=== PATIENT | female | born 1945 | race Caucasian/White ===

== ENCOUNTER 2017-10-02 11:17 | Inpatient (IN) | payer MEDICARE ==
[~2017-10-02] VITALS: Ht 162.6 cm; Wt 67.9 kg
[~2017-10-02 11:17] MED LIST: ESTR0.5T PO; INSU100V5 SQ-INSULIN; INSU100V8 SQ; LEVO112T4 PO; OMEG300C PO; UBID100C41 PO; VALS80TA3 PO; VIT1CAPS10 PO
[2017-10-02] MEDS ORDERED: SODIUM CHLORIDE 0.9% 1,000 ML IV ONE (11:38)
[2017-10-02] MEDS ORDERED: SODIUM CHLORIDE 0.9% 1,000ML IVBOLUS ONE (12:00)
[2017-10-02] MEDS ORDERED: HYDROmorphone 1 MG/ML, 1ML IVPush PRN (12:00)
[2017-10-02] MEDS ORDERED: ONDANSETRON 2MG/ML, 2ML IVPush ONE (12:00)
[2017-10-02] MEDS ORDERED: SODIUM CHLORIDE FLUSH 10ML SYR IVF ONE (12:00)
[2017-10-02] MEDS ORDERED: ONDANSETRON 2MG/ML, 2ML ONE (12:06)
[2017-10-02] MEDS ORDERED: HYDROmorphone 2 MG/ML, 1ML ONE ×3 (12:06→18:15)
[2017-10-02 12:26] LABS: BASOPHILS % (AUTO) 0 % (0-1); EOSINOPHILS # (AUTO) 0.01 x10^3/uL (0-0.4); EOSINOPHILS % (AUTO) 0 % (1-7); LYMPHOCYTES # (AUTO) 0.27 x10^3/uL (1-3.4); LYMPHOCYTES % (AUTO) 3 % (22-44); MD NO; MEAN CORPUSCULAR HEMOGLOBIN 31.2 pg (27.0-34.8); MEAN CORPUSCULAR HGB CONC 34.4 g/dL (32.4-35.8); MEAN CORPUSCULAR VOLUME 90.7 fL (80-100); MEAN PLATELET VOLUME 6.8 fL (7.4-10.4); MONOCYTES # (AUTO) 0.24 x10^3/uL (0.2-0.8); MONOCYTES % (AUTO) 3 % (2-9); NEUTROPHILS # (AUTO) 8.27 x10^3/uL (1.8-6.8); NEUTROPHILS % (AUTO) 94 % (42-75); PLATELET COUNT 293 x10^3/uL (130-400); RED CELL DISTRIBUTION WIDTH 11.9 % (9.6-15.2)
[2017-10-02 12:36] LABS: ANION GAP 7 mmol/L (5-15); CALCIUM 9.2 mg/dL (8.5-10.1); CHLORIDE 95 mmol/L (98-107); CREATININE 0.73 mg/dL (0.55-1.02)
[2017-10-02 12:37] LABS: ALANINE AMINOTRANSFERASE 23 U/L (12-78)
[2017-10-02 12:39] LABS: ALKALINE PHOSPHATASE 130 U/L (45-117); BILIRUBIN,TOTAL 0.8 mg/dL (0.2-1.0); TOTAL PROTEIN 7.9 g/dL (6.4-8.2)
[2017-10-02 13:00] LABS: MICROSCOPIC INDICATED
[2017-10-02 13:01] LABS: CULTURE INDICATED? YES
[2017-10-02] MEDS ORDERED: PROMETHAZINE 25 MG/ML, 1ML ONE (14:43)
[2017-10-02] MEDS ORDERED: CEFTRIAXONE PMX 1GM/50ML 50 ML ONE (14:57)
[2017-10-02] MEDS ORDERED: PROMETHAZINE 25 MG/ML, 1ML IM ONE (15:00)
[2017-10-02] MEDS ORDERED: CEFTRIAXONE PMX 1GM/50ML 50 ML IVPB ONE (15:00)
[2017-10-02] MEDS ORDERED: POLYETHYLENE GLYCOL 17 GM PACKET PO PRN (17:30)
[2017-10-02] MEDS ORDERED: BISACODYL 10 MG SUPP PR PRN (17:30)
[2017-10-02] MEDS ORDERED: ENALAPRILAT 1.25 MG/ML, 2ML IVPush PRN (17:30)
[2017-10-02] MEDS: INSULIN ASPART 100 UNITS/ML, PEN SQ-INSULIN SCH ×2 (17:30→20:35)
[2017-10-02 17:44] LABS: FREE T4 (FREE THYROXINE) 1.72 ng/dL (0.76-1.46); THYROID STIMULATING HORMONE 0.643 mIU/L (0.358-3.740)
[2017-10-02 17:46] LABS: HEMOGLOBIN A1C 8.4 % (4.2-6.3)
[2017-10-02 20:00] VITALS: BP 159/67
[2017-10-02] MEDS: SODIUM CHLORIDE 0.9% 1,000 ML IV SCH (20:15)
[2017-10-02] MEDS: HEPARIN 5,000 UNITS/ML, 1ML SQ SCH (20:25)
[2017-10-02] MEDS: ONDANSETRON 2MG/ML, 2ML IVPush PRN (21:05)
[2017-10-03 02:49] VITALS: BP 143/58
[2017-10-03] MEDS: ACETAMINOPHEN 325 MG TABLET PO PRN ×2 (02:52→21:06)
[2017-10-03] MEDS: SODIUM CHLORIDE 0.9% 1,000 ML IV SCH (05:40)
[2017-10-03] MEDS: HEPARIN 5,000 UNITS/ML, 1ML SQ SCH ×3 (05:40→21:07)
[2017-10-03] MEDS: LEVOTHYROXINE 112 MCG TABLET PO SCH (05:41)
[2017-10-03 05:58] LABS: ALBUMIN 2.9 g/dL (3.4-5.0); ANION GAP 9 mmol/L (5-15); CALCIUM 7.6 mg/dL (8.5-10.1); CHLORIDE 102 mmol/L (98-107)
[2017-10-03 06:01] LABS: BASOPHILS # (AUTO) 0.03 x10^3/uL (0-0.1); BASOPHILS % (AUTO) 1 % (0-1); EOSINOPHILS % (AUTO) 0 % (1-7); LYMPHOCYTES # (AUTO) 0.32 x10^3/uL (1-3.4); LYMPHOCYTES % (AUTO) 8 % (22-44); MD NO; MEAN CORPUSCULAR HEMOGLOBIN 30.9 pg (27.0-34.8); MEAN CORPUSCULAR HGB CONC 33.7 g/dL (32.4-35.8); MEAN CORPUSCULAR VOLUME 91.7 fL (80-100); MEAN PLATELET VOLUME 7.1 fL (7.4-10.4); MONOCYTES # (AUTO) 0.42 x10^3/uL (0.2-0.8); MONOCYTES % (AUTO) 11 % (2-9); NEUTROPHILS # (AUTO) 3.22 x10^3/uL (1.8-6.8); NEUTROPHILS % (AUTO) 81 % (42-75); PLATELET COUNT 223 x10^3/uL (130-400); RED CELL DISTRIBUTION WIDTH 12.5 % (9.6-15.2)
[2017-10-03 06:04] LABS: ALANINE AMINOTRANSFERASE 15 U/L (12-78); ALKALINE PHOSPHATASE 90 U/L (45-117); BILIRUBIN,TOTAL 0.5 mg/dL (0.2-1.0); CHOL/HDL RATIO 2.4; CHOLESTEROL, TOTAL 170 mg/dL (140-239); HDL CHOL % 42 % (28-40); HDL CHOLESTEROL (DIRECT) 71 mg/dL (40-60); LDL CHOLESTEROL,CALCULATED 91 mg/dL (54-169); LDL/HDL RATIO 1.3 (0.5-3.0); TOTAL PROTEIN 5.8 g/dL (6.4-8.2); TRIGLYCERIDES 39 mg/dL (50-200); VLDL CHOLESTEROL 8 mg/dL (0-25)
[2017-10-03] MEDS: INSULIN ASPART 100 UNITS/ML, PEN SQ-INSULIN SCH ×4 (07:00→21:07)
[2017-10-03 08:00] VITALS: BP 145/67
[2017-10-03] MEDS: SENNA/DOCUSATE TABLET PO SCH (09:00)
[2017-10-03] MEDS: VALSARTAN 80 MG TABLET PO SCH (09:00)
[2017-10-03] MEDS: ONDANSETRON 2MG/ML, 2ML IVPush PRN (12:36)
[2017-10-03] MEDS: CEFTRIAXONE PMX 1GM/50ML 50 ML IV SCH (15:20)
[2017-10-03 16:30] VITALS: BP 161/65
[2017-10-03 17:18] LABS: ANION GAP 11 mmol/L (5-15); CHLORIDE 97 mmol/L (98-107); CREATININE 0.87 mg/dL (0.55-1.02)
[2017-10-03] MEDS ORDERED: SODIUM CHLORIDE 0.9% 1,000 ML IV SCH (18:30)
[2017-10-03 20:31] VITALS: BP 132/52
[2017-10-03] MEDS: INSULIN DETEMIR 100 UNITS/ML, PEN SQ-INSULIN SCH (21:07)
[2017-10-04 02:30] VITALS: BP 136/65
[2017-10-04] MEDS: HEPARIN 5,000 UNITS/ML, 1ML SQ SCH ×3 (05:33→21:10)
[2017-10-04] MEDS: LEVOTHYROXINE 112 MCG TABLET PO SCH (05:33)
[2017-10-04 05:51] LABS: CREATININE 0.72 mg/dL (0.55-1.02)
[2017-10-04 06:27] LABS: ANION GAP 5 mmol/L (5-15); CHLORIDE 101 mmol/L (98-107)
[2017-10-04] MEDS: INSULIN ASPART 100 UNITS/ML, PEN SQ-INSULIN SCH ×4 (08:02→21:11)
[2017-10-04 08:04] VITALS: BP 135/71
[2017-10-04] MEDS: VALSARTAN 80 MG TABLET PO SCH (08:07)
[2017-10-04] MEDS: SENNA/DOCUSATE TABLET PO SCH (08:07)
[2017-10-04 10:16] LABS: CLOSTRIDIUM DIFFICILE ANTIGEN NEGATIVE; CLOSTRIDIUM DIFFICILE TOXIN NEGATIVE (Negative)
[2017-10-04] MEDS ORDERED: SODIUM CHLORIDE NASAL SPRAY 45ML BOTTLE NAS PRN (11:30)
[2017-10-04] MEDS: SODIUM CHLORIDE 0.9% 1,000 ML IV SCH (13:45)
[2017-10-04] MEDS ORDERED: SENNA/DOCUSATE TABLET PO PRN (14:30)
[2017-10-04] MEDS: CEFTRIAXONE PMX 1GM/50ML 50 ML IV SCH (14:46)
[2017-10-04 15:20] VITALS: BP 174/71
[2017-10-04] MEDS: hydrALAzine 20 MG/ML, 1ML IVPush PRN (15:27)
[2017-10-04] MEDS: ACETAMINOPHEN 325 MG TABLET PO PRN (15:32)
[2017-10-04 16:25] VITALS: BP 147/68
[2017-10-04 19:43] VITALS: BP 143/69
[2017-10-04] MEDS: INSULIN DETEMIR 100 UNITS/ML, PEN SQ-INSULIN SCH (21:10)
[2017-10-05 01:10] VITALS: BP 176/92
[2017-10-05] MEDS: hydrALAzine 20 MG/ML, 1ML IVPush PRN (01:29)
[2017-10-05] MEDS: ONDANSETRON 2MG/ML, 2ML IVPush PRN (02:03)
[2017-10-05] MEDS ORDERED: INSULIN ASPART 100 UNITS/ML, PEN SQ-INSULIN ONE (03:30)
[2017-10-05 05:22] LABS: BASOPHILS # (AUTO) 0.01 x10^3/uL (0-0.1); BASOPHILS % (AUTO) 0 % (0-1); EOSINOPHILS % (AUTO) 0 % (1-7); LYMPHOCYTES # (AUTO) 0.45 x10^3/uL (1-3.4); LYMPHOCYTES % (AUTO) 6 % (22-44); MD NO; MEAN CORPUSCULAR HEMOGLOBIN 31.5 pg (27.0-34.8); MEAN CORPUSCULAR HGB CONC 34.5 g/dL (32.4-35.8); MEAN CORPUSCULAR VOLUME 91.1 fL (80-100); MEAN PLATELET VOLUME 7.3 fL (7.4-10.4); MONOCYTES # (AUTO) 0.33 x10^3/uL (0.2-0.8); MONOCYTES % (AUTO) 4 % (2-9); NEUTROPHILS % (AUTO) 90 % (42-75); PLATELET COUNT 210 x10^3/uL (130-400); RED BLOOD COUNT 4.09 x10^6/uL (3.82-5.3); RED CELL DISTRIBUTION WIDTH 12.4 % (9.6-15.2)
[2017-10-05 05:31] LABS: ANION GAP 13 mmol/L (5-15); CALCIUM 7.7 mg/dL (8.5-10.1); CHLORIDE 96 mmol/L (98-107)
[2017-10-05] MEDS: SODIUM CHLORIDE 0.9% 1,000 ML IV SCH ×2 (05:46→23:11)
[2017-10-05] MEDS: LEVOTHYROXINE 112 MCG TABLET PO SCH (05:46)
[2017-10-05] MEDS: HEPARIN 5,000 UNITS/ML, 1ML SQ SCH ×3 (05:46→20:28)
[2017-10-05 07:44] VITALS: BP 122/49
[2017-10-05] MEDS: INSULIN ASPART 100 UNITS/ML, PEN SQ-INSULIN SCH ×4 (08:32→20:29)
[2017-10-05] MEDS: VALSARTAN 80 MG TABLET PO SCH (08:32)
[2017-10-05] MEDS ORDERED: INSULIN DETEMIR 100 UNITS/ML, PEN SQ-INSULIN SCH ×2 (09:30→21:00)
[2017-10-05] MEDS ORDERED: MAGNESIUM SULFATE PMX 2GM/50ML 50 ML IV ONE (10:00)
[2017-10-05] MEDS: CEFTRIAXONE PMX 1GM/50ML 50 ML IV SCH (15:17)
[2017-10-05 19:14] VITALS: BP 163/65
[2017-10-05] MEDS: DOXYCYCLINE 100MG TABLET PO SCH (20:28)
[2017-10-06 01:20] VITALS: BP 133/64
[2017-10-06] MEDS: LEVOTHYROXINE 112 MCG TABLET PO SCH (05:52)
[2017-10-06] MEDS: HEPARIN 5,000 UNITS/ML, 1ML SQ SCH (05:52)
[2017-10-06 05:56] LABS: ANION GAP 8 mmol/L (5-15); CALCIUM 7.4 mg/dL (8.5-10.1); CHLORIDE 99 mmol/L (98-107); CREATININE 0.41 mg/dL (0.55-1.02)
[2017-10-06 06:30] VITALS: BP 167/74
[2017-10-06] MEDS: DOXYCYCLINE 100MG TABLET PO SCH (09:00)
[2017-10-06] MEDS: INSULIN ASPART 100 UNITS/ML, PEN SQ-INSULIN SCH (09:00)
[2017-10-06] MEDS: VALSARTAN 80 MG TABLET PO SCH (09:00)
[2017-10-06] MEDS ORDERED: DOXY100T10 PO (11:37)
[2017-10-06] MEDS ORDERED: CEFD300C37 PO (11:37)
[2017-10-06] MEDS ORDERED: DOCU-131 PO (11:40)
[2017-10-06] MEDS ORDERED: INSULIN DETEMIR 100 UNITS/ML, PEN SQ-INSULIN SCH (21:00)
== END 2017-10-06 12:58 | disposition home or self-care (01) | DRG 73 ==
LOC: ED 13:02 → EDIP 17:08 → 3WST 18:40 → 3NE 10-04 17:39 → DCLOUNGE 10-06 12:47
PROVIDERS: ADMIT Internal Medicine; ATTEND Internal Medicine
DX: E11.43 Type 2 diabetes mellitus with diabetic autonomic (poly)neuropathy (principal); J96.20 Acute and chronic respiratory failure, unspecified whether with hypoxia or hypercapnia; E87.1 Hypo-osmolality and hyponatremia; N39.0 Urinary tract infection, site not specified; E11.65 Type 2 diabetes mellitus with hyperglycemia; K31.84 Gastroparesis; E86.0 Dehydration; B96.1 Klebsiella pneumoniae [K. pneumoniae] as the cause of diseases classified elsewhere; E03.9 Hypothyroidism, unspecified; I10 Essential (primary) hypertension; J40 Bronchitis, not specified as acute or chronic; K59.00 Constipation, unspecified; Z79.4 Long term (current) use of insulin; Z88.2 Allergy status to sulfonamides
CPT/HCPCS: 36415; 71020; 74020; 78264; 80048; 80053; 80061; 81001; 82962; 83036; 83690; 83735; 84100; 84439; 84443; 85025; 87077; 87086; 87186; 87324; 89055; 96361; 96365; 96366; 96372; 96375; J0696; J1170; J1644; J1815; J2405; J2550; A9541; C9898; J0360; J3475; J7030